=== PATIENT | female | born 1940 | race Caucasian/White ===

== ENCOUNTER 2017-02-06 13:56 | Emergency (ER) | payer OTHER ==
[~2017-02-06] VITALS: Ht 172.7 cm; Wt 78.2 kg
[~2017-02-06 13:56] MED LIST: ALPRAZOLAM0.25 M2 PO; CALCIUM 1,0001 EACH PO; CALCIUM 600 +1 EA12 PO; CENTRUM SILVER1 EAC3 PO; CILOXAN 0.1 APPLICAT BOTH EYES; CIPRO500 MG PO; CIPRODEX OTIC7.5 ML BOTH EARS; CLEOCIN150 MG PO; CYANOCOBALAM1000 MCG PO; FISH OIL300 MG PO; FOLIC ACID0.8 MG PO; GLUCOPHAGE500 MG PO; HYDROCODON-ACE1 EAC7 PO; K-TAB10 MEQ PO; LASIX40 MG PO; LEVEMIR FL100 UNITS/ SC; LISINOPRIL10 MG PO; LOPRESSOR50 MG PO; METFORMIN HCL500 MG PO; METOPROLOL TART50 MG PO; PANTOPRAZOLE SO40 MG PO; POTASSIUM CHLO10 ME3 PO; POTASSIUM CHLO10 MEQ PO; PRADAXA150 MG PO; PRAVACHOL10 MG PO; REGLAN10 MG PO; VITAMIN B12-FO1 EACH PO; XALATAN2.5 ML BOTH EYES; XARELTO20 MG PO; ZESTRIL10 MG PO
[2017-02-06 14:29] LABS: HEMATOCRIT 43.5 % (36.0-46.0); MCH 30.7 PG (29.0-34.0); MCV 90.2 FL (83-99); MEAN PLAT.VOLUME 11.9 uM^3 (9.5-12.4); PLATELET COUNT 103 K/uL (156-360); RBC DIS.WIDTH-CV 14.1 % (11.8-14.6); RBC DIS.WIDTH-SD 46.6 % (39-53); RED BLOOD COUNT 4.82 M/uL (3.80-5.20); WHITE BLOOD COUNT 11.2 K/uL (4.1-10.2)
[2017-02-06 14:35] LABS: CARBON DIOXIDE (BICARBONATE) 31.8 MEQ/L (20-31)
[2017-02-06 14:37] LABS: CHLORIDE 101 mEq/L (99-109); POTASSIUM 3.5 mEq/L (3.7-5.4); SODIUM 139 mEq/L (136-147)
[2017-02-06 14:40] LABS: GLUCOSE 136 mg/dL (70-99)
[2017-02-06 14:41] LABS: ANION GAP 12 MEQ/L (2-14)
[2017-02-06 14:42] LABS: TOTAL BILIRUBIN 2.3 mg/dL (0.0-1.0)
[2017-02-06 14:43] LABS: ALKALINE PHOSPHATASE 45 IU/L (3-129); GFR ESTIMATE (CALCULATED) 52 mL/min/
[2017-02-06 14:44] LABS: UREA NITROGEN (BUN) 13 mg/dL (9-23)
[2017-02-06 15:16] LABS: TROP-I INTERPRETATION NEGATIVE; TROPONIN-I < 0.01 ng/mL (0.0-0.30)
[2017-02-06 15:28] LABS: ABS NEUTROPHIL COUNT 9.3; ATYPICAL LYMPHOCYTE 0.9 %; BAND NEUTROPHILS 9.6 % (0-8.0); EOSINOPHIL ABS CT 0; INSTRUMENT ABS NEUTROPHIL CT 9.2 K/uL; LYMPHOCYTES 3.5 % (15.0-45.0); PLAT.SUFFICIENCY DECREASED; SEG.NEUTROPHILS 73.7 % (46.0-76.0)
[2017-02-06] MEDS ORDERED: LEVAQUIN500 MG PO (15:36)
[2017-02-06 16:17] VITALS: BP 132/67
== END 2017-02-06 16:17 | disposition home or self-care (01) ==
LOC: EME 13:56
PROVIDERS: Physician Assistant
DX: R06.02 Shortness of breath (principal); E11.9 Type 2 diabetes mellitus without complications; Z79.84 Long term (current) use of oral hypoglycemic drugs; I48.91 Unspecified atrial fibrillation; Z95.0 Presence of cardiac pacemaker
CPT/HCPCS: 71020; 80053; 82803; 83880; 84484; 85025; 93005; 99281; 99284

== ENCOUNTER 2017-04-23 11:37 | Emergency (ER) | payer OTHER ==
[~2017-04-23] VITALS: Ht 170.2 cm; Wt 72.7 kg
[~2017-04-23 11:37] MED LIST changes: +LEVAQUIN500 MG PO
[2017-04-23 13:57] LABS: EOSINOPHIL (%) 1.5 % (0-5); EOSINOPHIL COUNT 0.1 K/uL (0-0.3); HEMATOCRIT 42.6 % (36.0-46.0); INSTRUMENT ABS NEUTROPHIL CT 2.3 K/uL; MCH 30.4 PG (29.0-34.0); MCHC 33.8 G/DL (30.0-36.0); MCV 90.1 FL (83-99); MEAN PLAT.VOLUME 11.3 uM^3 (9.5-12.4); MONOCYTE (%) 11.8 % (3-12); MONOCYTE COUNT 0.5 K/uL (0-0.8); NEUTROPHIL COUNT 2.3 K/uL (1.8-6.4); PLATELET COUNT 102 K/uL (156-360); RBC DIS.WIDTH-CV 14.2 % (11.8-14.6); RBC DIS.WIDTH-SD 46.9 % (39-53); RED BLOOD COUNT 4.73 M/uL (3.80-5.20); WHITE BLOOD COUNT 3.9 K/uL (4.1-10.2)
[2017-04-23 14:05] LABS: INTER. NORMALIZED RATIO 2.9; PROTHROMBIN TIME 33.8 SEC (10.2-12.9)
[2017-04-23 14:07] LABS: CHLORIDE 102 mEq/L (99-109); POTASSIUM 3.7 mEq/L (3.7-5.4); SODIUM 140 mEq/L (136-147)
[2017-04-23 14:09] LABS: GLUCOSE 159 mg/dL (70-99)
[2017-04-23 14:10] LABS: ANION GAP 9 MEQ/L (2-14)
[2017-04-23 14:12] LABS: GFR ESTIMATE (CALCULATED) 43 mL/min/
[2017-04-23 14:13] LABS: UREA NITROGEN (BUN) 12 mg/dL (9-23)
[2017-04-23 14:18] LABS: TROP-I INTERPRETATION NEGATIVE; TROPONIN-I < 0.01 ng/mL (0.0-0.30)
[2017-04-23 15:16] LABS: ADD MIUA? YES; BILIRUBIN NEGATIVE; BLOOD NEGATIVE; COLOR YELLOW ((YELLOW)); GLUCOSE (STRIP) NEGATIVE; KETONES NEGATIVE; LEUKOCYTES LARGE; NITRITE NEGATIVE; PROTEIN (STRIP) NEGATIVE; SPECIFIC GRAVITY 1.011 (1.000-1.030)
[2017-04-23 15:52] LABS: BACTERIA 1+ /HPF; EPITHELIAL CELLS 2+ /HPF; MUCUS TRACE /LPF; RED BLOOD CELLS 0-5 /HPF (0-5); UCUL ADDED? NO; WHITE BLOOD CELLS 20-30 /HPF (0-5)
[2017-04-23] MEDS ORDERED: KEFLEX500 MG PO (16:32)
[2017-04-23 16:55] VITALS: BP 144/81
== END 2017-04-23 17:02 | disposition home or self-care (01) ==
LOC: EME 11:37
PROVIDERS: Emergency Medicine
DX: N39.0 Urinary tract infection, site not specified (principal); I50.9 Heart failure, unspecified; E78.5 Hyperlipidemia, unspecified; E11.9 Type 2 diabetes mellitus without complications; K21.9 Gastro-esophageal reflux disease without esophagitis; Z90.49 Acquired absence of other specified parts of digestive tract; Z87.891 Personal history of nicotine dependence
CPT/HCPCS: 70450; 71010; 80048; 81003; 83605; 84484; 85025; 85610; 99281; 99284; J7030

== ENCOUNTER 2017-06-20 14:52 | Emergency (ER) | payer OTHER ==
[~2017-06-20] VITALS: Ht 170.2 cm; Wt 68.1 kg
[~2017-06-20 14:52] MED LIST changes: +KEFLEX500 MG PO
[2017-06-20] MEDS ORDERED: FISH OIL 1,0001 EAC7 PO (15:22)
[2017-06-20] MEDS ORDERED: PROBIOTIC1 EAC1 PO ×2 (15:23)
[2017-06-20] MEDS ORDERED: VITAMIN D-32000 UNI2 PO (15:24)
[2017-06-20] MEDS ORDERED: CRANBERRY TABL1 EACH PO (15:24)
[2017-06-20 15:51] LABS: HEMATOCRIT 41.5 % (36.0-46.0); MCH 30.7 PG (29.0-34.0); MCV 90.2 FL (83-99); MEAN PLAT.VOLUME 11.5 uM^3 (9.5-12.4); PLATELET COUNT 130 K/uL (156-360); RBC DIS.WIDTH-CV 13.8 % (11.8-14.6); RBC DIS.WIDTH-SD 45.8 % (39-53); WHITE BLOOD COUNT 4.5 K/uL (4.1-10.2)
[2017-06-20 15:57] LABS: INTER. NORMALIZED RATIO 2.4; PROTHROMBIN TIME 27.2 SEC (10.2-12.9)
[2017-06-20 16:01] LABS: CHLORIDE 99 mEq/L (99-109)
[2017-06-20 16:02] LABS: SODIUM 142 mEq/L (136-147)
[2017-06-20 16:03] LABS: GLUCOSE 128 mg/dL (70-99)
[2017-06-20 16:05] LABS: ANION GAP 13 MEQ/L (2-14)
[2017-06-20 16:07] LABS: GFR ESTIMATE (CALCULATED) 57 mL/min/
[2017-06-20 16:08] LABS: UREA NITROGEN (BUN) 13 mg/dL (9-23)
[2017-06-20 16:36] LABS: ADD MIUA? YES; BILIRUBIN NEGATIVE; BLOOD NEGATIVE; COLOR STRAW ((YELLOW)); GLUCOSE (STRIP) NEGATIVE; KETONES NEGATIVE; LEUKOCYTES MODERATE; NITRITE NEGATIVE; PROTEIN (STRIP) NEGATIVE; SPECIFIC GRAVITY 1.005 (1.000-1.030); UROBILINOGEN 0.2 MG/DL (0.2-1.0)
[2017-06-20 16:41] LABS: BACTERIA 1+ /HPF; EPITHELIAL CELLS RARE /HPF; MUCUS NONE SEEN /LPF; RED BLOOD CELLS 0-5 /HPF (0-5); WHITE BLOOD CELLS 15-20 /HPF (0-5)
[2017-06-20 19:21] VITALS: BP 139/70
== END 2017-06-20 19:22 | disposition home or self-care (01) ==
LOC: EME 14:52
PROVIDERS: Physician Assistant
DX: S72.012A Unspecified intracapsular fracture of left femur, initial encounter for closed fracture (principal); W19.XXXA Unspecified fall, initial encounter; E78.5 Hyperlipidemia, unspecified; E11.9 Type 2 diabetes mellitus without complications; Z79.84 Long term (current) use of oral hypoglycemic drugs; I48.91 Unspecified atrial fibrillation; Z79.01 Long term (current) use of anticoagulants; Z95.0 Presence of cardiac pacemaker; Z90.710 Acquired absence of both cervix and uterus; Z87.891 Personal history of nicotine dependence
CPT/HCPCS: 71010; 73502; 80048; 81003; 85027; 85610; 85730; 93005; 99281; 99284

== ENCOUNTER 2018-04-21 09:58 | Emergency (ER) | payer OTHER ==
[~2018-04-21] VITALS: Ht 172.7 cm; Wt 70.0 kg
[~2018-04-21 09:58] MED LIST changes: +CRANBERRY TABL1 EACH PO; +FISH OIL 1,0001 EAC7 PO; +PROBIOTIC1 EAC1 PO; +VITAMIN D-32000 UNI2 PO
[2018-04-21] MEDS ORDERED: TYLENOL WITH C1 EACH PO (12:59)
[2018-04-21 13:09] VITALS: BP 132/86
== END 2018-04-21 13:11 | disposition home or self-care (01) ==
LOC: EME 09:58
DX: M25.551 Pain in right hip (principal); S70.01XA Contusion of right hip, initial encounter; W18.11XA Fall from or off toilet without subsequent striking against object, initial encounter; Y92.002 Bathroom of unspecified non-institutional (private) residence as the place of occurrence of the external cause; R29.6 Repeated falls; R60.0 Localized edema; M85.88 Other specified disorders of bone density and structure, other site; E78.5 Hyperlipidemia, unspecified; E11.9 Type 2 diabetes mellitus without complications; Z79.84 Long term (current) use of oral hypoglycemic drugs; I50.9 Heart failure, unspecified; Z95.810 Presence of automatic (implantable) cardiac defibrillator; Z79.01 Long term (current) use of anticoagulants; Z87.891 Personal history of nicotine dependence
CPT/HCPCS: 73502; 73700; 99281; 99284

== ENCOUNTER 2018-04-24 17:13 | Inpatient (IN) | payer OTHER ==
[~2018-04-24] VITALS: Ht 167.6 cm; Wt 60.4 kg
[~2018-04-24 17:13] MED LIST changes: -CRANBERRY TABL1 EACH PO; +CRANBERRY500 M3 PO; +TYLENOL WITH C1 EACH PO; -VITAMIN D-32000 UNI2 PO; +VITAMIN D33000 UNIT PO; +ZESTRIL5 MG PO
[2018-04-24 18:43] LABS: HEMATOCRIT 38.4 % (36.0-46.0); HEMOGLOBIN 13.7 G/DL (11.9-15.5); MCH 31.7 PG (29.0-34.0); MCHC 35.7 G/DL (30.0-36.0); MCV 88.9 FL (83-99); PLATELET COUNT 137 K/uL (156-360); RBC DIS.WIDTH-CV 14.3 % (11.8-14.6); RBC DIS.WIDTH-SD 45.7 % (39-53); RED BLOOD COUNT 4.32 M/uL (3.80-5.20); WHITE BLOOD COUNT 10.8 K/uL (4.1-10.2)
[2018-04-24 19:00] LABS: CHLORIDE 92 mEq/L (99-109)
[2018-04-24 19:01] LABS: POTASSIUM 4.2 mEq/L (3.7-5.4); SODIUM 130 mEq/L (136-147)
[2018-04-24 19:02] LABS: GLUCOSE 297 mg/dL (70-99)
[2018-04-24 19:06] LABS: CREATININE 1.6 mg/dL (0.6-1.3); GFR ESTIMATE (CALCULATED) 33 mL/min/
[2018-04-24 19:07] LABS: UREA NITROGEN (BUN) 33 mg/dL (9-23)
[2018-04-24 19:37] LABS: INTER. NORMALIZED RATIO 2.2
[2018-04-24 19:40] LABS: PTT 34.3 SEC (25-37)
[2018-04-24 20:20] LABS: APPEARANCE CLEAR ((CLEAR)); BILIRUBIN NEGATIVE; BLOOD NEGATIVE; COLOR YELLOW ((YELLOW)); GLUCOSE (STRIP) NEGATIVE; KETONES NEGATIVE; LEUKOCYTES NEGATIVE; NITRITE NEGATIVE; PROTEIN (STRIP) NEGATIVE; SPECIFIC GRAVITY 1.016 (1.000-1.030); UCUL ADDED? NO
[2018-04-24] MEDS ORDERED: JANUVIA25 M1 PO (21:06)
[2018-04-24] MEDS ORDERED: TYLENOL EXTRA500 MG PO (21:06)
[2018-04-24 21:56] LABS: ALBUMIN 3.6 g/dL (3.2-4.8)
[2018-04-24 21:59] LABS: TOTAL PROTEIN 6.4 g/dL (6.4-8.3)
[2018-04-24 22:00] LABS: TOTAL BILIRUBIN 1.7 mg/dL (0.0-1.0)
[2018-04-24 22:02] LABS: ALKALINE PHOSPHATASE 72 IU/L (3-129)
[2018-04-24 22:04] LABS: AST (GOT) 21 IU/L (2-34); DIRECT BILIRUBIN 0.7 mg/dL (0.0-0.3)
[2018-04-24 22:05] LABS: ALT (GPT) 14 IU/L (3-49)
[2018-04-24 23:49] VITALS: BP 129/73
[2018-04-25 05:10] VITALS: BP 118/70
[2018-04-25 08:03] VITALS: BP 120/79
[2018-04-25 08:56] LABS: HEMATOCRIT 35.8 % (36.0-46.0); HEMOGLOBIN 13.1 G/DL (11.9-15.5); MCH 31.9 PG (29.0-34.0); MCHC 36.6 G/DL (30.0-36.0); MCV 87.1 FL (83-99); PLATELET COUNT 126 K/uL (156-360); RBC DIS.WIDTH-CV 14.2 % (11.8-14.6); RBC DIS.WIDTH-SD 45.4 % (39-53); RED BLOOD COUNT 4.11 M/uL (3.80-5.20); WHITE BLOOD COUNT 9.2 K/uL (4.1-10.2)
[2018-04-25 08:58] LABS: CHLORIDE 98 MEQ/L (99-109); CREATININE 1.3 MG/DL (0.6-1.3); GFR ESTIMATE (CALCULATED) 42 mL/min/; GLUCOSE 186 mg/dL (70-99); POTASSIUM 3.9 MEQ/L (3.7-5.4); SODIUM 132 MEQ/L (136-147); UREA NITROGEN (BUN) 32 mg/dL (9-23)
[2018-04-26 00:27] VITALS: BP 115/73
[2018-04-26 03:30] VITALS: BP 113/66
[2018-04-26 07:15] LABS: CHLORIDE 98 MEQ/L (99-109); CREATININE 1.5 MG/DL (0.6-1.3); GFR ESTIMATE (CALCULATED) 36 mL/min/; POTASSIUM 3.8 MEQ/L (3.7-5.4); SODIUM 136 MEQ/L (136-147); UREA NITROGEN (BUN) 33 mg/dL (9-23)
[2018-04-26 07:17] LABS: GLUCOSE 113 mg/dL (70-99)
[2018-04-26 08:08] VITALS: BP 122/69
[2018-04-26 15:45] VITALS: BP 120/80
[2018-04-26 22:32] VITALS: BP 141/75
[2018-04-27 06:52] LABS: HEMATOCRIT 38.2 % (36.0-46.0); HEMOGLOBIN 12.9 G/DL (11.9-15.5); MCH 30.6 PG (29.0-34.0); MCHC 33.8 G/DL (30.0-36.0); MCV 90.7 FL (83-99); PLATELET COUNT 145 K/uL (156-360); RBC DIS.WIDTH-CV 14.8 % (11.8-14.6); RBC DIS.WIDTH-SD 47.8 % (39-53); RED BLOOD COUNT 4.21 M/uL (3.80-5.20); WHITE BLOOD COUNT 8.8 K/uL (4.1-10.2)
[2018-04-27 07:25] LABS: CHLORIDE 99 MEQ/L (99-109); CREATININE 1.4 MG/DL (0.6-1.3); GFR ESTIMATE (CALCULATED) 39 mL/min/; POTASSIUM 4.2 MEQ/L (3.7-5.4); SODIUM 141 MEQ/L (136-147); UREA NITROGEN (BUN) 28 mg/dL (9-23)
[2018-04-27 07:27] LABS: GLUCOSE 204 mg/dL (70-99)
[2018-04-27 08:12] VITALS: BP 116/62
[2018-04-27 12:04] VITALS: BP 134/85
[2018-04-27 15:29] VITALS: BP 147/96
[2018-04-27 19:37] VITALS: BP 139/81
[2018-04-27 23:56] VITALS: BP 125/77
[2018-04-28 00:02] VITALS: BP 104/55
[2018-04-28 03:47] VITALS: BP 125/81
[2018-04-28 06:51] LABS: BASOPHIL (%) 0.3 % (0-1); EOSINOPHIL (%) 2.3 % (0-5); EOSINOPHIL COUNT 0.2 K/uL (0-0.3); HEMATOCRIT 39.2 % (36.0-46.0); HEMOGLOBIN 13.3 G/DL (11.9-15.5); IMMATURE GRANULOCYTE (%) 0.6 % (0.0-0.7); LYMPHOCYTE (%) 13.5 % (15-42); LYMPHOCYTE COUNT 0.9 K/uL (1.0-2.8); MCH 30.5 PG (29.0-34.0); MCHC 33.9 G/DL (30.0-36.0); MCV 89.9 FL (83-99); MONOCYTE (%) 14.3 % (3-12); MONOCYTE COUNT 0.9 K/uL (0-0.8); NEUTROPHIL COUNT 4.5 K/uL (1.8-6.4); PLATELET COUNT 149 K/uL (156-360); RBC DIS.WIDTH-CV 14.7 % (11.8-14.6); RBC DIS.WIDTH-SD 47.4 % (39-53); RED BLOOD COUNT 4.36 M/uL (3.80-5.20); WHITE BLOOD COUNT 6.5 K/uL (4.1-10.2)
[2018-04-28 07:18] LABS: CHLORIDE 100 MEQ/L (99-109); CREATININE 1.3 MG/DL (0.6-1.3); GFR ESTIMATE (CALCULATED) 42 mL/min/; GLUCOSE 129 mg/dL (70-99); POTASSIUM 3.5 MEQ/L (3.7-5.4); SODIUM 142 MEQ/L (136-147); UREA NITROGEN (BUN) 23 mg/dL (9-23)
[2018-04-28 07:28] VITALS: BP 143/75
[2018-04-28 15:53] VITALS: BP 126/76
[2018-04-29 07:39] VITALS: BP 154/69
[2018-04-29 17:03] VITALS: BP 146/66
[2018-04-29 21:15] VITALS: BP 130/84
[2018-04-29 23:42] VITALS: BP 125/77
[2018-04-30 09:17] VITALS: BP 135/90
[2018-04-30] MEDS ORDERED: LEVOFLOXACIN750 MG PO (14:00)
[2018-04-30] MEDS ORDERED: TYLENOL EXTRA500 MG PO (14:06)
[2018-04-30] MEDS ORDERED: DOCUSATE SODIU100 MG PO (14:07)
[2018-04-30] MEDS ORDERED: POLYETHYLENE GL17 GM PO (14:07)
[2018-04-30] MEDS ORDERED: TRAMADOL HCL50 MG PO (14:10)
[2018-04-30] MEDS ORDERED: ENDOCET 5-3251 EACH PO (14:10)
[2018-04-30] MEDS ORDERED: LASIX20 MG PO (14:11)
[2018-04-30] MEDS ORDERED: DOXYCYCLINE HY100 MG PO (14:43)
== END 2018-04-30 16:32 | DRG 871 ==
LOC: EME 17:13 → EDOF 21:45 → ENRESERV 21:47 → 3EAST 23:25
PROVIDERS: Emergency Medicine; Hospitalist; Internal Medicine; Pediatrics Pediatric Infectious Diseases; Physician Assistant Medical; Student in an Organized Health Care Education/Training Program
DX: A41.9 Sepsis, unspecified organism (principal); J44.0 Chronic obstructive pulmonary disease with (acute) lower respiratory infection; J18.9 Pneumonia, unspecified organism; N17.9 Acute kidney failure, unspecified; E87.2 Acidosis; E11.65 Type 2 diabetes mellitus with hyperglycemia; E87.1 Hypo-osmolality and hyponatremia; E86.0 Dehydration; N39.0 Urinary tract infection, site not specified; B95.7 Other staphylococcus as the cause of diseases classified elsewhere; R33.9 Retention of urine, unspecified; I11.0 Hypertensive heart disease with heart failure; I50.32 Chronic diastolic (congestive) heart failure; J84.10 Pulmonary fibrosis, unspecified; I48.2 Chronic atrial fibrillation; R79.1 Abnormal coagulation profile; T45.515A Adverse effect of anticoagulants, initial encounter; K21.9 Gastro-esophageal reflux disease without esophagitis; E78.5 Hyperlipidemia, unspecified; F41.9 Anxiety disorder, unspecified; S32.10XA Unspecified fracture of sacrum, initial encounter for closed fracture; W19.XXXA Unspecified fall, initial encounter; Y92.009 Unspecified place in unspecified non-institutional (private) residence as the place of occurrence of the external cause; N26.1 Atrophy of kidney (terminal); M85.80 Other specified disorders of bone density and structure, unspecified site; Z66 Do not resuscitate; Z88.1 Allergy status to other antibiotic agents; Z88.0 Allergy status to penicillin; Z91.041 Radiographic dye allergy status; Z88.2 Allergy status to sulfonamides; Z95.0 Presence of cardiac pacemaker; Z95.810 Presence of automatic (implantable) cardiac defibrillator; Z79.01 Long term (current) use of anticoagulants; Z87.891 Personal history of nicotine dependence
CPT/HCPCS: 71045; 72131; 74176; 80048; 80076; 81003; 82271; 82948; 83605; 85025; 85027; 85610; 85730; 86609 90; 87040; 87077; 87086; 87186; 87449; 93005; 94799; 97530 GP; 99281; 99285; C9113; G0378; J1815; J1956; J7030; J7040

== ENCOUNTER 2018-05-10 08:42 | Inpatient (IN) | payer OTHER ==
[~2018-05-10] VITALS: Ht 172.7 cm; Wt 72.9 kg
[~2018-05-10 08:42] MED LIST changes: +CRANBERRY425 MG PO; -CRANBERRY500 M3 PO; +DOCUSATE SODIU100 MG PO; +DOXYCYCLINE HY100 MG PO; +ENDOCET 5-3251 EACH PO; +JANUVIA25 M1 PO; +LASIX20 MG PO; +LEVOFLOXACIN750 MG PO; +POLYETHYLENE GL17 GM PO; +TRAMADOL HCL50 MG PO; +TYLENOL EXTRA500 MG PO; +VITAMIN D2000 UNIT PO; -VITAMIN D33000 UNIT PO
[2018-05-10 09:46] LABS: HEMOGLOBIN 14.4 G/DL (11.9-15.5); MCH 31.6 PG (29.0-34.0); MCHC 35.1 G/DL (30.0-36.0); MCV 89.9 FL (83-99); PLATELET COUNT 170 K/uL (156-360); RBC DIS.WIDTH-CV 14.5 % (11.8-14.6); RBC DIS.WIDTH-SD 47.8 % (39-53); RED BLOOD COUNT 4.56 M/uL (3.80-5.20); WHITE BLOOD COUNT 11.1 K/uL (4.1-10.2)
[2018-05-10 09:59] LABS: CHLORIDE 98 mEq/L (99-109); POTASSIUM 3.6 mEq/L (3.7-5.4); SODIUM 136 mEq/L (136-147)
[2018-05-10 10:00] LABS: GLUCOSE 171 mg/dL (70-99)
[2018-05-10 10:04] LABS: CREATININE 1.1 mg/dL (0.6-1.3); GFR ESTIMATE (CALCULATED) 51 mL/min/
[2018-05-10 10:05] LABS: UREA NITROGEN (BUN) 13 mg/dL (9-23)
[2018-05-10 10:08] LABS: TROP-I INTERPRETATION NEGATIVE; TROPONIN-I < 0.01 ng/mL (0.0-0.30)
[2018-05-10 10:37] LABS: APPEARANCE TURBID ((CLEAR)); BILIRUBIN NEGATIVE; BLOOD MODERATE; COLOR AMBER ((YELLOW)); GLUCOSE (STRIP) NEGATIVE; KETONES NEGATIVE; LEUKOCYTES LARGE; NITRITE NEGATIVE; PROTEIN (STRIP) 30; UROBILINOGEN 0.2 MG/DL (0.2-1.0)
[2018-05-10 10:38] LABS: BASOPHIL (%) 0.3 % (0-1); EOSINOPHIL (%) 0.4 % (0-5); IMMATURE GRANULOCYTE (%) 0.4 % (0.0-0.7); LYMPHOCYTE (%) 2.6 % (15-42); LYMPHOCYTE COUNT 0.3 K/uL (1.0-2.8); MONOCYTE COUNT 0.7 K/uL (0-0.8); NEUTROPHIL (%) 90.3 % (45-76); NEUTROPHIL COUNT 10.1 K/uL (1.8-6.4)
[2018-05-10 10:39] LABS: ALBUMIN 3.3 g/dL (3.2-4.8)
[2018-05-10 10:42] LABS: INTER. NORMALIZED RATIO 4.5; TOTAL PROTEIN 5.9 g/dL (6.4-8.3)
[2018-05-10 10:43] LABS: PTT 42.1 SEC (25-37)
[2018-05-10 10:45] LABS: ALKALINE PHOSPHATASE 246 IU/L (3-129)
[2018-05-10 10:47] LABS: AST (GOT) 20 IU/L (2-34)
[2018-05-10 10:48] LABS: ALT (GPT) 11 IU/L (3-49); LIPASE 29 U/L (1.0-51.0)
[2018-05-10 11:07] LABS: WHITE BLOOD CELLS TNTC /HPF (0-5)
[2018-05-10 11:08] LABS: BACTERIA 1+ /HPF; EPITHELIAL CELLS NONE SEEN /HPF; MUCUS NONE SEEN /LPF; UCUL ADDED? YES
[2018-05-10 13:04] LABS: INTER. NORMALIZED RATIO 4.2
[2018-05-10 13:44] VITALS: BP 123/59
[2018-05-10] MEDS ORDERED: LASIX20 MG PO (14:30)
[2018-05-10] MEDS ORDERED: ENDOCET 5-3251 EACH PO ×2 (14:31→14:37)
[2018-05-10] MEDS ORDERED: QUESTRAN PACKET4 GM PO (14:35)
[2018-05-10] MEDS ORDERED: TYLENOL EXTRA500 MG PO (14:38)
[2018-05-10] MEDS ORDERED: PROMETHAZINE12.5 M1 PO (14:39)
[2018-05-10 15:36] VITALS: BP 111/61
[2018-05-10 19:15] VITALS: BP 122/67
[2018-05-10 23:31] VITALS: BP 93/54
[2018-05-11] VITALS (7 sets, daily range): BP systolic 107–146; BP diastolic 53–87
[2018-05-11 06:33] LABS: HEMATOCRIT 38.2 % (36.0-46.0); HEMOGLOBIN 12.7 G/DL (11.9-15.5); MCH 30.6 PG (29.0-34.0); MCHC 33.2 G/DL (30.0-36.0); PLATELET COUNT 151 K/uL (156-360); RBC DIS.WIDTH-CV 14.8 % (11.8-14.6); RBC DIS.WIDTH-SD 49.7 % (39-53); RED BLOOD COUNT 4.15 M/uL (3.80-5.20); WHITE BLOOD COUNT 10.4 K/uL (4.1-10.2)
[2018-05-11 06:49] LABS: CHLORIDE 103 MEQ/L (99-109); CREATININE 1.2 MG/DL (0.6-1.3); GFR ESTIMATE (CALCULATED) 46 mL/min/; GLUCOSE 122 mg/dL (70-99); POTASSIUM 3.4 MEQ/L (3.7-5.4); SODIUM 139 MEQ/L (136-147); UREA NITROGEN (BUN) 14 mg/dL (9-23)
[2018-05-12 03:45] VITALS: BP 124/73
[2018-05-12 06:35] LABS: BASOPHIL (%) 0.4 % (0-1); EOSINOPHIL (%) 3.2 % (0-5); EOSINOPHIL COUNT 0.2 K/uL (0-0.3); HEMATOCRIT 37.7 % (36.0-46.0); HEMOGLOBIN 12.6 G/DL (11.9-15.5); IMMATURE GRANULOCYTE (%) 0.5 % (0.0-0.7); LYMPHOCYTE (%) 12.5 % (15-42); MCH 31.1 PG (29.0-34.0); MCHC 33.4 G/DL (30.0-36.0); MCV 93.1 FL (83-99); MONOCYTE (%) 13.2 % (3-12); NEUTROPHIL (%) 70.2 % (45-76); NEUTROPHIL COUNT 5.3 K/uL (1.8-6.4); PLATELET COUNT 141 K/uL (156-360); RBC DIS.WIDTH-CV 14.9 % (11.8-14.6); RBC DIS.WIDTH-SD 51.5 % (39-53); RED BLOOD COUNT 4.05 M/uL (3.80-5.20); WHITE BLOOD COUNT 7.6 K/uL (4.1-10.2)
[2018-05-12 07:00] LABS: CHLORIDE 104 MEQ/L (99-109); CREATININE 1.1 MG/DL (0.6-1.3); GFR ESTIMATE (CALCULATED) 51 mL/min/; GLUCOSE 107 mg/dL (70-99); POTASSIUM 3.7 MEQ/L (3.7-5.4); SODIUM 140 MEQ/L (136-147); UREA NITROGEN (BUN) 12 mg/dL (9-23)
[2018-05-12 07:49] VITALS: BP 128/74
[2018-05-12 12:28] LABS: C DIFF TOXIN NEGATIVE (NEGATIVE)
[2018-05-12 12:35] VITALS: BP 139/74
[2018-05-12 14:03] LABS: INTER. NORMALIZED RATIO 1.6; PTT 34.3 SEC (25-37)
[2018-05-12 15:26] VITALS: BP 125/78
[2018-05-12 19:26] VITALS: BP 136/78
[2018-05-12 23:45] VITALS: BP 130/87
[2018-05-13 05:13] VITALS: BP 132/74
[2018-05-13 08:09] VITALS: BP 162/96
[2018-05-13 11:20] VITALS: BP 126/68
[2018-05-13] MEDS ORDERED: XARELTO20 MG PO (14:49)
[2018-05-13 16:28] VITALS: BP 126/90
[2018-05-13 19:16] VITALS: BP 132/62
[2018-05-14 00:20] VITALS: BP 129/84
[2018-05-14 08:00] VITALS: BP 133/89
[2018-05-14 09:49] LABS: BASOPHIL (%) 0.5 % (0-1); EOSINOPHIL (%) 2.4 % (0-5); EOSINOPHIL COUNT 0.1 K/uL (0-0.3); HEMATOCRIT 42.1 % (36.0-46.0); HEMOGLOBIN 13.9 G/DL (11.9-15.5); IMMATURE GRANULOCYTE (%) 0.3 % (0.0-0.7); LYMPHOCYTE (%) 8.5 % (15-42); LYMPHOCYTE COUNT 0.5 K/uL (1.0-2.8); MCH 31.2 PG (29.0-34.0); MCV 94.6 FL (83-99); MONOCYTE (%) 10.6 % (3-12); MONOCYTE COUNT 0.6 K/uL (0-0.8); NEUTROPHIL (%) 77.7 % (45-76); NEUTROPHIL COUNT 4.5 K/uL (1.8-6.4); PLATELET COUNT 135 K/uL (156-360); RBC DIS.WIDTH-CV 14.6 % (11.8-14.6); RED BLOOD COUNT 4.45 M/uL (3.80-5.20); WHITE BLOOD COUNT 5.8 K/uL (4.1-10.2)
[2018-05-14 10:14] LABS: CHLORIDE 105 mEq/L (99-109); POTASSIUM 3.7 mEq/L (3.7-5.4); SODIUM 140 mEq/L (136-147)
[2018-05-14 10:20] LABS: CREATININE 1.1 mg/dL (0.6-1.3); GFR ESTIMATE (CALCULATED) 51 mL/min/
[2018-05-14 10:21] LABS: UREA NITROGEN (BUN) 9 mg/dL (9-23)
[2018-05-14 10:31] LABS: GLUCOSE 162 mg/dL (70-99)
[2018-05-14 11:52] VITALS: BP 113/69
[2018-05-14 15:37] VITALS: BP 136/84
[2018-05-14 20:57] VITALS: BP 123/70
[2018-05-14 23:15] VITALS: BP 139/78
[2018-05-15 04:30] VITALS: BP 127/80
[2018-05-15 07:50] VITALS: BP 133/93
[2018-05-15 12:55] VITALS: BP 122/80
[2018-05-15 16:12] VITALS: BP 128/85
[2018-05-15 23:19] VITALS: BP 160/86
[2018-05-16 07:08] LABS: CREATININE 0.8 MG/DL (0.6-1.3); GFR ESTIMATE (CALCULATED) > 59 mL/min/
[2018-05-16 08:06] VITALS: BP 137/89
[2018-05-16 15:59] VITALS: BP 132/84
[2018-05-16 23:49] VITALS: BP 168/84
[2018-05-17 07:48] VITALS: BP 141/82
[2018-05-17] MEDS ORDERED: AMOX TR-K CLV1 EAC4 PO (10:28)
[2018-05-17] MEDS ORDERED: DUONEB 2.5-0.5 M3 ML AEROSOL (10:29)
[2018-05-17] MEDS ORDERED: TRAMADOL HCL50 MG PO (10:30)
[2018-05-17] MEDS ORDERED: ENDOCET 5-3251 EACH PO (10:31)
[2018-05-17] MEDS ORDERED: ALPRAZOLAM0.25 M2 PO (10:32)
== END 2018-05-17 15:56 | DRG 871 ==
LOC: EME 08:42 → 3EAST 11:17 → EDOF 11:17 → CANRESERV 11:19 → ENRESERV 11:19 → ENRESERVTM 12:28 → 3EAST 13:30
PROVIDERS: Internal Medicine; Nurse Practitioner Family; Student in an Organized Health Care Education/Training Program
DX: A41.9 Sepsis, unspecified organism (principal); J18.9 Pneumonia, unspecified organism; Y95 Nosocomial condition; J96.01 Acute respiratory failure with hypoxia; I11.0 Hypertensive heart disease with heart failure; I50.32 Chronic diastolic (congestive) heart failure; I48.2 Chronic atrial fibrillation; D68.9 Coagulation defect, unspecified; E11.9 Type 2 diabetes mellitus without complications; E78.5 Hyperlipidemia, unspecified; G93.41 Metabolic encephalopathy; H40.9 Unspecified glaucoma; H91.90 Unspecified hearing loss, unspecified ear; I73.00 Raynaud's syndrome without gangrene; K21.9 Gastro-esophageal reflux disease without esophagitis; M85.80 Other specified disorders of bone density and structure, unspecified site; S32.10XD Unspecified fracture of sacrum, subsequent encounter for fracture with routine healing; W18.30XD Fall on same level, unspecified, subsequent encounter; Z66 Do not resuscitate; Z86.74 Personal history of sudden cardiac arrest; Z87.891 Personal history of nicotine dependence; Z95.810 Presence of automatic (implantable) cardiac defibrillator; D64.9 Anemia, unspecified; F32.9 Major depressive disorder, single episode, unspecified; F41.9 Anxiety disorder, unspecified; H26.9 Unspecified cataract; R11.10 Vomiting, unspecified; R19.7 Diarrhea, unspecified; Z91.81 History of falling
CPT/HCPCS: 70450; 71045; 71046; 71250; 80048; 80053; 80202; 81003; 82565; 82948; 83605; 83690; 83880; 84484; 85025; 85027; 85610; 85730; 87040; 87086; 87106; 87449; 87493; 87641; 92526 GN; 92610 GN; 93005; 94640; 94760; 94799; 97530 GP; 99281; 99285; J1200; J2405; J2543; J3370; J7030; J7050